=== PATIENT | female | born 2000 | race Two or more races ===

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

== ENCOUNTER 2022-02-28 20:53 | Emergency (ER) | payer OTHER ==
[~2022-02-28] VITALS: Ht 149.9 cm; Wt 54.4 kg
[~2022-02-28 20:53] MED LIST: CEFADROXIL500 MG PO; PYRIDIUM100 M1 PO
== END 2022-02-28 21:41 | disposition home or self-care (01) ==
LOC: ER 20:53
DX: N76.0 Acute vaginitis (principal)

== ENCOUNTER 2022-07-18 13:55 | Emergency (ER) | payer OTHER ==
[~2022-07-18] VITALS: Ht 149.9 cm; Wt 56.2 kg
== END 2022-07-18 18:35 | disposition home or self-care (01) ==
LOC: ER 13:55
DX: O21.8 Other vomiting complicating pregnancy (principal); Z3A.15 15 weeks gestation of pregnancy; A05.9 Bacterial foodborne intoxication, unspecified; Z20.822 Contact with and (suspected) exposure to COVID-19

== ENCOUNTER 2022-07-31 16:59 | Emergency (ER) | payer OTHER | END 2022-07-31 21:45 | disposition left against medical advice (07) | LOC: ER 16:59 | DX: Z53.21 Procedure and treatment not carried out due to patient leaving prior to being seen by health care provider (principal) ==

== ENCOUNTER 2022-10-08 03:23 | Outpatient (CLI) | payer OTHER ==
[~2022-10-08 03:23] MED LIST changes: +PRENATAL TABLE1 EAC1 PO
== END 2022-10-08 14:38 | disposition home or self-care (01) ==
LOC: OBS/DEL 03:23
PROVIDERS: ATTEND Obstetrics & Gynecology
DX: O26.892 Other specified pregnancy related conditions, second trimester (principal); Z3A.27 27 weeks gestation of pregnancy; R10.2 Pelvic and perineal pain

== ENCOUNTER 2022-11-17 16:57 | Emergency (ER) | payer OTHER ==
[~2022-11-17] VITALS: Ht 149.9 cm; Wt 59.0 kg
== END 2022-11-17 22:09 | disposition home or self-care (01) ==
LOC: ER 16:57
DX: G43.109 Migraine with aura, not intractable, without status migrainosus (principal)

== ENCOUNTER 2022-12-07 03:48 | Outpatient (CLI) | payer OTHER | END 2022-12-08 11:59 | disposition home or self-care (01) | LOC: ER 03:48 → OBS/DEL 03:48 | PROVIDERS: ATTEND Obstetrics & Gynecology | DX: O60.03 Preterm labor without delivery, third trimester (principal); Z3A.35 35 weeks gestation of pregnancy; Z91.013 Allergy to seafood ==

== ENCOUNTER 2022-12-09 23:13 | Outpatient (CLI) | payer OTHER | END 2022-12-10 13:04 | disposition home or self-care (01) | LOC: OBS/DEL 23:13 | PROVIDERS: ATTEND Obstetrics & Gynecology | DX: O26.893 Other specified pregnancy related conditions, third trimester (principal); Z3A.36 36 weeks gestation of pregnancy; R10.2 Pelvic and perineal pain ==

== ENCOUNTER 2022-12-27 20:25 | Inpatient (IN) | payer OTHER ==
[~2022-12-27] VITALS: Ht 149.9 cm; Wt 3.2 kg
[2022-12-27] MEDS ORDERED: AMPICILLIN TRI500 MG (20:52)
== END 2022-12-31 10:33 | disposition home or self-care (01) | DRG 788 ==
LOC: OBS/DEL 20:25 → ER 20:25 → OB/GYN 12-28 08:38 → LDR 12-28 08:38 → OB/GYN 12-28 16:40
PROVIDERS: ADMIT Obstetrics & Gynecology; ATTEND Obstetrics & Gynecology
PROC: 4A1HXCZ Monitoring of Products of Conception, Cardiac Rate, External Approach (ICD-10-PCS; 2022-12-28)
PROC: 10D00Z1 Extraction of Products of Conception, Low, Open Approach (ICD-10-PCS; principal; 2022-12-28 14:00)
DX: O33.8 Maternal care for disproportion of other origin (principal); O99.824 Streptococcus B carrier state complicating childbirth; Z3A.39 39 weeks gestation of pregnancy; Z37.0 Single live birth; Z20.822 Contact with and (suspected) exposure to COVID-19